=== PATIENT | female | born 1965 | race Caucasian/White ===

== ENCOUNTER → 2016-10-12 | Outpatient (CLI) | payer OTHER ==
[~2016-10-12] MED LIST: FLX10 PO
[2016-10-12 16:28] LABS: BASO % 0.1 %; BASO ABS # 0.01 K/uL (0-0.2); COMPLETE YES; EOS % 0.4 %; HEMATOCRIT 40.9 % (37-47); IG% 0.3 %; LYMPH % 31.7 %; LYMPH ABS # 2.24 K/uL (1.2-3.4); MEAN CELL VOLUME 95.1 fL (80-100); MEAN CORPUSCULAR HEMOGLOBIN 32.8 pg (25-34); MEAN CORPUSCULAR HGB CONC 34.5 g/dl (32-36); MEAN PLATELET VOLUME 10.7 fL (7.4-10.4); MONO % 3.5 %; PLATELET COUNT 173 K/uL (130-400); WHITE BLOOD COUNT 7.07 K/uL (4.8-10.8)
[2016-10-12 16:47] LABS: ALT/SGPT 21 U/L (12-78); AST/SGOT 14 U/L (15-37); BLOOD UREA NITROGEN 19 mg/dl (7-18); BUN/CREATININE RATIO 25.1 (10-20); CALCIUM 9.3 mg/dl (8.5-10.1); CARBON DIOXIDE 32 mmol/L (21-32); CHLORIDE 106 mmol/L (98-107); CREATININE 0.75 mg/dl (0.60-1.20); GLUCOSE 103 mg/dl (70-99); POTASSIUM 3.8 mmol/L (3.5-5.1); SODIUM 142 mmol/L (136-145)
[2016-10-12 16:50] LABS: ALB/GLOB RATIO 1.4 (0.9-2); ALKALINE PHOSPHATASE 65 U/L (45-117)
[2016-10-15 11:11] LABS: HEPATITIS C VIRAL RNA BY PCR <15 NOT DETECTED IU/ML (<15); HEPATITIS C VIRAL RNA(LOG) PCR <1.18 NOT DETECTED LOG IU/ML (<1.18)
== END | disposition home or self-care (01) ==
LOC: C.LAB1850 14:40
PROVIDERS: ATTEND Nurse Practitioner
DX: B19.20 Unspecified viral hepatitis C without hepatic coma (principal); B18.2 Chronic viral hepatitis C

== ENCOUNTER → 2017-01-04 | Outpatient (CLI) | payer OTHER ==
[2017-01-04 12:15] LABS: BASO % 0.2 %; BASO ABS # 0.01 K/uL (0-0.2); COMPLETE YES; EOS % 0.7 %; HEMATOCRIT 44.1 % (37-47); IG% 0.2 %; LYMPH % 36.5 %; MEAN CELL VOLUME 96.5 fL (80-100); MEAN CORPUSCULAR HEMOGLOBIN 31.9 pg (25-34); MEAN CORPUSCULAR HGB CONC 33.1 g/dl (32-36); MEAN PLATELET VOLUME 10.5 fL (7.4-10.4); MONO % 7.1 %; NEUT % 55.3 %; PLATELET COUNT 178 K/uL (130-400); RED BLOOD COUNT 4.57 M/uL (4.2-5.4); WHITE BLOOD COUNT 6.03 K/uL (4.8-10.8)
[2017-01-04 13:25] LABS: ALT/SGPT 22 U/L (12-78); BLOOD UREA NITROGEN 16 mg/dl (7-18); BUN/CREATININE RATIO 20.7 (10-20); CARBON DIOXIDE 30 mmol/L (21-32); CHLORIDE 105 mmol/L (98-107); CREATININE 0.77 mg/dl (0.60-1.20); GLUCOSE 92 mg/dl (70-99); POTASSIUM 4.4 mmol/L (3.5-5.1); SODIUM 141 mmol/L (136-145)
[2017-01-04 13:26] LABS: CALCIUM 9.7 mg/dl (8.5-10.1)
[2017-01-04 13:28] LABS: ALB/GLOB RATIO 1.6 (0.9-2); ALKALINE PHOSPHATASE 64 U/L (45-117); AST/SGOT 19 U/L (15-37)
[2017-01-06 08:00] LABS: HEPATITIS C VIRAL RNA BY PCR <15 NOT DETECTED IU/ML (<15); HEPATITIS C VIRAL RNA(LOG) PCR <1.18 NOT DETECTED LOG IU/ML (<1.18)
== END | disposition home or self-care (01) ==
LOC: C.LAB1850 10:43
PROVIDERS: ATTEND Nurse Practitioner
DX: B18.2 Chronic viral hepatitis C (principal)

== ENCOUNTER 2021-04-25 11:25 | Inpatient (IN) ==
[2021-04-25] MEDS ORDERED: SODIUM CHLORIDE 0.9% 250 ML IV PRN (12:01)
[2021-04-25] MEDS ORDERED: PANTOprazole 40 MG in SYRINGE 0 ML IV ONE (12:18)
[2021-04-25] MEDS ORDERED: FAMOTIDINE 20MG IV PUSH 20 MG/5 ML SYR IV STA (12:18)
--- NOTE | 2021-04-25 12:18 | Emergency Department Note ---
Impression & Plan Acute upper gastrointestinal bleeding, Anemia ED Provider Note NAME: JESSENIA JAIMES AGE: 55 SEX: F : 1965 ARRIVES VIA: Walk-In INFORMANT: Patient, ED PROVIDER(S): Urban Hui DO CHIEF COMPLAINT: Abdominal pain HPI: The patient is a 55-year-old female who presented to the emergency department for an evaluation of abdominal pain. The patient states she is had upper abdominal pain for many weeks. She was seen initially at [facility]. She was initially felt to be suffering from COVID-19. Symptoms continue to worsen. When she went back to [place] she was admitted for anemia and GI bleeding. She then was sent to [facility]. She had an entire work-up including bleeding scans CAT scans and endoscopy. At that time she also did have a rash on her lower extremities. Given her whole work-up they thought her condition could be consistent with a vasculitis specifically of her skin but also of her stomach. She was started on steroids. She states that she was following up with her primary care physician because she needed laboratory studies done before she restarted chemotherapy for recurrent breast cancer. She had outpatient labs which showed a very significantly low hemoglobin and she was sent to the emergency department for further evaluation. The patient has been experiencing shortness of breath with exertion. She denies having any chest pain she has noticed some leg swelling but no rash. She denies having any black or bloody bowel movements. ROS: See above HPI for pertinent positives & negatives. A total of 10 systems reviewed and were otherwise negative. PAST MEDICAL HISTORY: See Below PAST SURGICAL HISTORY: See Below FAMILY HISTORY: See Below SOCIAL HISTORY: See Below HOME MEDICATIONS: See Below ALLERGIES: See Below VITALS: See Below PHYSICAL EXAMINATION: GENERAL: Patient is awake alert in no acute distress patient is resting comfortably and showing no signs of anxiety EYES: The conjunctivae are clear. The pupils are round and reactive. EARS, NOSE, MOUTH AND THROAT: The nose is without any evidence of any deformity. Mucous membranes are moist. Tongue is midline. NECK: The neck is nontender and supple. RESPIRATORY: Normal respiratory effort is noted there is no evidence of wheezing rhonchi or rales CARDIOVASCULAR: Regular rate and rhythm noted there no murmurs rubs or gallops normal S1 normal S2. GASTROINTESTINAL: The abdomen is soft and nondistended. There is no tenderness guarding rigidity. Rectal exam revealed brown stool which was heme positive. MUSCULOSKELETAL/EXTREMITIES: There is no evidence of gross deformity full range of motion is noted in the hips and shoulders. SKIN: Skin was warm and dry. Pedal edema was noted bilaterally. NEUROLOGIC: Patient is awake alert and oriented x3. MEDICAL DECISION MAKING: The patient is a 55-year-old female who presented to the emergency department for an evaluation of anemia. The patient was recently admitted to [facility]. She had an entire work-up which included upper endoscopy and radiographic studies. She was felt to be suffering from a vasculitis of the GI tract. The patient was treated with Protonix and Pepcid in the emergency department. She was also ordered a blood transfusion. I did discuss blood transfusion with the patient and consent her myself. The patient was ordered blood transfusion and was reevaluated multiple times. I discussed her [facility] They have agreed to evaluate the patient in the emergency department for further management and disposition. Triage Nursing notes reviewed. Prior medical records reviewed Vital Signs: reviewed and remarkable for elevated blood pressure. Differential diagnosis: Diverticulosis, AVM, coagulopathy, colitis, inflammatory bowel disease, malignancy, Jennifer-Bentley tear, esophagitis, peptic ulcer disease, variceal bleed, gastritis, epistaxis, fissure, hemorrhoids, as well as other pathologies. ER treatment provided: See below Diagnostics interpreted by me: ECG: EKG was obtained in the emergency department. My interpretation is normal sinus rhythm at 77 bpm. There was no ectopy. There was no acute ST segment abnormalities noted. This was compared to a tracing from March 171998. No significant changes were noted. Cardiac Monitoring: An order was placed for continuous cardiac monitoring. The monitor shows a rate of 83 bpm with sinus rhythm. Laboratory studies: As stated above and show below. Imaging studies: See below Consultation(s): 1235: I discussed this case with Lavonne who was food preparation worker [facility]. I have personally spent greater than 45 minutes of critical care time in the direct management of this patient. This includes bedside care, interpretation of diagnostic studies, and testing, discussion with consultants, patient, and fa edward members, and other required patient management activities. This 45 minutes is in excess of all separately billable procedures. Past Med/Surg History Medical History Anxiety NO MEDS CURRENTLY Breast cancer LEFT Dysplasia of cervix (uteri) Hepatitis C Treatment completed Lactose intolerance in adult Peptic ulcer disease A TEEN Rheumatoid arthritis NO MEDS Surgical History H/O tubal ligation H/O wisdom tooth extraction History of tooth extraction S/P breast biopsy, left US GUIDED Family History Family/Other FHx: breast cancer Family history of diabetes mellitus Father Family history of diabetes mellitus Social History Smoking Status: Never smoker Cigarettes Per Day: 1/2 PPD X 30 YEARS; Second Hand Exposure: No; Hx Alcohol Use: No Hx Substance Use: No Preferred Language: Korean Communication Ability: Effective Addiction Psychiatrist Required: No Beliefs That Will Affect Care: None marital status: Current Living Situation: Spouse current occupational status: employed Feels Safe at Home: Yes caffeine: Yes during the past year weight has: remained stable Dental Care, Regularly: Yes Physical Activity Frequency: 5-6 Times per Week Assistive Devices: Contacts and Glasses Allergies Allergies Allergy/AdvReac Type Severity Reaction Status Date / Time nickel Allergy Mild Rash Verified 03/19/21 08:28 Home Meds Home Medications Medication Instructions Recorded Confirmed amlodipine 2.5 mg tablet 2.5 mg PO DAILY 04/25/21 04/25/21 famotidine 20 mg tablet 20 mg PO DAILY 04/25/21 04/25/21 prednisone 20 mg tablet 20 mg PO DAILY 04/25/21 04/25/21 Results & Data (ED) Vital Signs Vital Signs - 24 hr 04/25/21 11:36 04/25/21 13:24 04/25/21 13:26 Temperature 36.6 C Temperature Source Temporal Artery Scan Pulse Rate 85 Pulse Rate [Apical] 83 Respiratory Rate 16 18 Respiratory Effort / Characteristics Non-Labored Spontaneous Respiratory Depth Normal Respiratory Pattern Regular Blood Pressure 168/98 H Blood Pressure [Right Arm] 166/100 H Blood Pressure Mean 121 Blood Pressure Mean [Right Arm] 122 Pulse Oximetry 95 96 96 Oxygen Delivery Method Room Air Room Air Room Air Sepsis Recent Fever Within 48 Hours No Sepsis New/Unexplained Change in Mental Status No Sepsis Action Taken by Nursing No Action Required Home Medications Current Medication List: was personally reviewed by me Laboratory Data Attestation: I reviewed the patient's lab results. Result diagrams: 04/25/21 12:44 04/25/21 12:44 Lab Results 04/25/21 04/25/21 04/25/21 Range/Units 12:44 12:44 12:44 WBC 10.27 (4.8-10.8) K/uL RBC 2.43 L (4.2-5.4) M/uL Hgb 7.7 L (12.0-16.0) g/dL Hct 22.9 L (37-47) % MCV 94.2 (80-100) fL MCH 31.7 (25-34) pg MCHC 33.6 (32-36) g/dL RDW Std Deviation 46.5 H (36.4-46.3) fL RDW Coeff of Anahi 14.0 (11.5-14.5) % Plt Count 233 (130-400) K/uL MPV 9.0 (7.4-10.4) fL Immature Gran % (Auto) 7.0 % Neut % (Auto) 74.5 % Lymph % (Auto) 9.2 % [place] % (Auto) 6.2 % Eos % (Auto) 2.8 % Baso % (Auto) 0.3 % Neut # (Auto) 7.65 H (1.4-6.5) K/uL Lymph # (Auto) 0.94 L (1.2-3.4) K/uL [place] # (Auto) 0.64 H (0.11-0.59) K/uL Eos # (Auto) 0.29 (0-0.5) K/uL Baso # (Auto) 0.03 (0-0.2) K/uL Immature Gran # (Auto) 0.72 H (0.00-0.02) K/uL Absolute Nucleated RBC 0.02 H (0-0) K/uL Nucleated RBC % (auto) 0.1 % RBC Morphology Unremarkable PT 10.1 (9.0-12.0) Seconds INR 1.0 (0.9-1.1) APTT 21.0 (21.0-31.0) Seconds PTT Ratio 0.8 Sodium (136-145) mmol/L Potassium (3.5-5.1) mmol/L Chloride (98-107) mmol/L Carbon Dioxide (21-32) mmol/L Anion Gap (3-11) BUN (7-18) mg/dl Creatinine (0.6-1.2) mg/dl Est Cr Clr Drug Dosing Est GFR ( Amer) ml/min Est GFR (Non-Af Amer) ml/min BUN/Creatinine Ratio (10-20) Glucose (70-99) mg/dl Calcium (8.5-10.1) mg/dl Total Bilirubin (0.2-1) mg/dl AST (15-37) U/L ALT (12-78) U/L Alkaline Phosphatase (45-117) U/L Troponin I (0-0.045) ng/ml Total Protein (6.4-8.2) gm/dl Albumin (3.4-5.0) gm/dl Globulin (2.5-4.0) gm/dl Albumin/Globulin Ratio (0.9-2) Lipase (73-393) U/L COVID-19 Eval Order SARS-CoV-2 (PCR) (Negative) Blood Type A Positive Blood Type Recheck Antibody Screen NEGATIVE Crossmatch See Detail 04/25/21 04/25/21 04/25/21 Range/Units 12:44 13:20 13:20 WBC (4.8-10.8) K/uL RBC (4.2-5.4) M/uL Hgb (12.0-16.0) g/dL Hct (37-47) % MCV (80-100) fL MCH (25-34) pg MCHC (32-36) g/dL RDW Std Deviation (36.4-46.3) fL RDW Coeff of Anahi (11.5-14.5) % Plt Count (130-400) K/uL MPV (7.4-10.4) fL Immature Gran % (Auto) % Neut % (Auto) % Lymph % (Auto) % [place] % (Auto) % Eos % (Auto) % Baso % (Auto) % Neut # (Auto) (1.4-6.5) K/uL Lymph # (Auto) (1.2-3.4) K/uL [place] # (Auto) (0.11-0.59) K/uL Eos # (Auto) (0-0.5) K/uL Baso # (Auto) (0-0.2) K/uL Immature Gran # (Auto) (0.00-0.02) K/uL Absolute Nucleated RBC (0-0) K/uL Nucleated RBC % (auto) % RBC Morphology PT (9.0-12.0) Seconds INR (0.9-1.1) APTT (21.0-31.0) Seconds PTT Ratio Sodium 139 (136-145) mmol/L Potassium 4.3 (3.5-5.1) mmol/L Chloride 112 H (98-107) mmol/L Carbon Dioxide 23 (21-32) mmol/L Anion Gap 4.0 (3-11) BUN 37 H (7-18) mg/dl Creatinine 0.84 (0.6-1.2) mg/dl Est Cr Clr Drug Dosing Not Reportable Est GFR ( Amer) 90.7 ml/min Est GFR (Non-Af Amer) 78.2 ml/min BUN/Creatinine Ratio 43.7 H (10-20) Glucose 103 H (70-99) mg/dl Calcium 8.3 L (8.5-10.1) mg/dl Total Bilirubin 0.3 (0.2-1) mg/dl AST 26 (15-37) U/L ALT 42 (12-78) U/L Alkaline Phosphatase 121 H (45-117) U/L Troponin I < 0.015 (0-0.045) ng/ml Total Protein 5.1 L (6.4-8.2) gm/dl Albumin 2.4 L (3.4-5.0) gm/dl Globulin 2.7 (2.5-4.0) gm/dl Albumin/Globulin Ratio 0.9 (0.9-2) Lipase 346 (73-393) U/L COVID-19 Eval Order Covid19 at [facility] SARS-CoV-2 (PCR) (Negative) Blood Type Blood Type Recheck A Positive Antibody Screen Crossmatch 04/25/21 Range/Units 13:20 WBC (4.8-10.8) K/uL RBC (4.2-5.4) M/uL Hgb (12.0-16.0) g/dL Hct (37-47) % MCV (80-100) fL MCH (25-34) pg MCHC (32-36) g/dL RDW Std Deviation (36.4-46.3) fL RDW Coeff of Anahi (11.5-14.5) % Plt Count (130-400) K/uL MPV (7.4-10.4) fL Immature Gran % (Auto) % Neut % (Auto) % Lymph % (Auto) % [place] % (Auto) % Eos % (Auto) % Baso % (Auto) % Neut # (Auto) (1.4-6.5) K/uL Lymph # (Auto) (1.2-3.4) K/uL [place] # (Auto) (0.11-0.59) K/uL Eos # (Auto) (0-0.5) K/uL Baso # (Auto) (0-0.2) K/uL Immature Gran # (Auto) (0.00-0.02) K/uL Absolute Nucleated RBC (0-0) K/uL Nucleated RBC % (auto) % RBC Morphology PT (9.0-12.0) Seconds INR (0.9-1.1) APTT (21.0-31.0) Seconds PTT Ratio Sodium (136-145) mmol/L Potassium (3.5-5.1) mmol/L Chloride (98-107) mmol/L Carbon Dioxide (21-32) mmol/L Anion Gap (3-11) BUN (7-18) mg/dl Creatinine (0.6-1.2) mg/dl Est Cr Clr Drug Dosing Est GFR ( Amer) ml/min Est GFR (Non-Af Amer) ml/min BUN/Creatinine Ratio (10-20) Glucose (70-99) mg/dl Calcium (8.5-10.1) mg/dl Total Bilirubin (0.2-1) mg/dl AST (15-37) U/L ALT (12-78) U/L Alkaline Phosphatase (45-117) U/L Troponin I (0-0.045) ng/ml Total Protein (6.4-8.2) gm/dl Albumin (3.4-5.0) gm/dl Globulin (2.5-4.0) gm/dl Albumin/Globulin Ratio (0.9-2) Lipase (73-393) U/L COVID-19 Eval Order SARS-CoV-2 (PCR) NEGATIVE (Negative) Blood Type Blood Type Recheck Antibody Screen Crossmatch Administered Medications Discontinued Medications Furosemide (Furosemide 40 Mg/4 Ml Vial) 20 mg IV NOW STA Stop: 04/25/21 14:12 Last Admin: 04/25/21 14:18 Dose: 20 mg Documented by: [id number] Pantoprazole Sodium 40 mg/ (Syringe) 10 mls @ 5 mls/min IV NOW ONE Stop: 04/25/21 12:19 Last Admin: 04/25/21 14:37 Dose: 5 mls/min Documented by: [id number] Famotidine (Pepcid 20mg Iv Push) 20 mg in 5 mls @ 2.5 mls/min IV NOW STA Stop: 04/25/21 12:19 Last Admin: 04/25/21 13:11 Dose: 2.5 mls/min Documented by: [id number] Imaging Data Radiologist's Impression: Chest X-Ray 04/25/21 12:01 XR chest 1V portable CLINICAL HISTORY: Chest Pain COMPARISON STUDY: PET/CT March 05, 2021. FINDINGS: Left subclavian [id number] is in place. Cardiomediastinal silhouette is normal. Is no pneumothorax. There are small bilateral pleural effusions. There are bibasilar airspace opacities. There is pulmonary vascular congestion. IMPRESSION: 1. Bibasilar opacities which may reflect pneumonia or atelectasis. Radiographic follow up is recommended to ensure resolution. 2. Pulmonary vascular congestion. 3. Small bilateral pleural effusions. ACT 112: Negative or not required by law. Electronically signed by: Ralph Zamudio M.D. 04/25/2021 12:59 PM Discharge Plan Visit Data Chief Complaint: GI Bleed Stated Complaint: TROUBLE BREATHING, REFERRED BY DOCTOR ED Provider: Urban Hui Discharge Problem: Acute upper gastrointestinal bleeding, Anemia Patient Disposition: Being Evaluated by Hospitalist Forms Stand Alone Forms: My [facility] PK Clean Prescriptions Prescriptions: No Action prednisone 20 mg tablet 20 mg PO DAILY RF: 0 amlodipine 2.5 mg tablet 2.5 mg PO DAILY RF: 0 famotidine 20 mg tablet 20 mg PO DAILY RF: 0 Referrals Referrals: Steven Garcia DO [Primary Care Provider] -
[2021-04-25 12:55] LABS: Hematocrit (blood only) 22.9 % (37-47); Hemoglobin 7.7 g/dL (12.0-16.0); Mean Corpuscular Hemoglobin 31.7 pg (25-34); Mean Corpuscular Hgb Conc 33.6 g/dL (32-36); Mean Corpuscular Volume 94.2 fL (80-100); Nucleated RBC # (auto) 0.02 K/uL (0-0); Nucleated RBC % (auto) 0.1 %; Platelet Count 233 K/uL (130-400); RDW Standard Deviation 46.5 fL (36.4-46.3); Red Blood Count 2.43 M/uL (4.2-5.4); White Blood Count 10.27 K/uL (4.8-10.8)
--- NOTE | 2021-04-25 13:00 | XRay Report ---
XR chest 1V portable CLINICAL HISTORY: Chest Pain COMPARISON STUDY: PET/CT March 05, 2021. FINDINGS: Left subclavian [id number] is in place. Cardiomediastinal silhouette is normal. Is no pn eumothorax. There are small bilateral pleural effusions. There are bibasilar airspace opacities. Ther e is pulmonary vascular congestion. IMPRESSION: 1. Bibasilar opacities which may reflect pneumonia or atelectasis. Radiographic follow up is recommen ded to ensure resolution. 2. Pulmonary vascular congestion. 3. Small bilateral pleural effusions. ACT 112: Negative or not required by law. Electronically signed by: Ralph Zamudio M.D. 04/25/2021 12:59 PM
[2021-04-25 13:05] LABS: Partial Thromboplastin Ratio 0.8; Prothrombin Time 10.1 Seconds (9.0-12.0)
[2021-04-25 13:13] LABS: Alanine Aminotransferase 42 U/L (12-78); Albumin Level 2.4 gm/dl (3.4-5.0); Aspartate Aminotransferase 26 U/L (15-37); BUN Creatinine Ratio 43.7 (10-20); Blood Urea Nitrogen 37 mg/dl (7-18); Calcium 8.3 mg/dl (8.5-10.1); Carbon Dioxide 23 mmol/L (21-32); Chloride 112 mmol/L (98-107); Est GFR (African American) 90.7 ml/min; Est GFR (Non-African American) 78.2 ml/min; Glucose 103 mg/dl (70-99); Lipase 346 U/L (73-393); Potassium 4.3 mmol/L (3.5-5.1); Sodium 139 mmol/L (136-145)
[2021-04-25 13:16] LABS: Basophils # (auto) 0.03 K/uL (0-0.2); Basophils % (auto) 0.3 %; Eosinophils # (auto) 0.29 K/uL (0-0.5); Eosinophils % (auto) 2.8 %; Immature Granulocytes # (auto) 0.72 K/uL (0.00-0.02); Lymphocytes # (auto) 0.94 K/uL (1.2-3.4); Lymphocytes % (auto) 9.2 %; Monocytes # (auto) 0.64 K/uL (0.11-0.59); Monocytes % (auto) 6.2 %; Neutrophils # (auto) 7.65 K/uL (1.4-6.5); Neutrophils % (auto) 74.5 %; RBC Morphology Unremarkable
[2021-04-25 13:18] LABS: Albumin Globulin Ratio 0.9 (0.9-2); Alkaline Phosphatase 121 U/L (45-117); Bilirubin,Total 0.3 mg/dl (0.2-1); Globulin 2.7 gm/dl (2.5-4.0); Total Protein 5.1 gm/dl (6.4-8.2); Troponin I < 0.015 ng/ml (0-0.045)
--- NOTE | 2021-04-25 13:55 | Gastrointestinal Consultation ---
Date of Consultation April 25, 2021 Assessment & Plan (1) Duodenitis determined by biopsy: Medically complex 55 year old female with history of HCV s/p Harvoni w/ SVR, triple negative L breast Ca s/p neoadjuvant chemo and b/l mastectomy (05/16/2019) now w/ local recurrence s/p excision and awaiting chemo, recent COVID-19 infection, recent admission x 2 to [facility] for anemia, melena, rash. Work up consistent for leukocytoclastic vasculitis admitted at [facility] w/ anemia (appears stable HGB 7.7) chest pressure/tightness Trend HGB Monitor and document output Transfuse per primary team Consider rheumatology evaluation Patient reporting allergy to PPI (suspected this rash was related to vasculitis) but does not wish to try drug category again, can continue Pepcid while admitted No plan for endoscopic evaluation today Thank you for allowing us to participate in the care of this patient. Please call with any acute changes, questions or concerns. Please see addendum below with additional recommendation from my supervising physician. Supervising Physician Co-Signing Physician Notes I performed a history and physical examination of the patient today, including specifically on physical exam - soft abdomen. I have discussed the patient's management with the advanced practitioner. Please refer to the nurse practitioner's note for the documented findings and plan of care. 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 Started on PO Prednisone. Currently no bleeding and H/H stable. No further intervention from GI stand point. Management per renal and rheumatology teams. Recall GI if needed. History of Present Illness Reason for Consultation: duodenitis Requesting Physician: Lavonne Rico PA-C Attending Physician: Lavonne Rico PA-C History of Present Illness 55 year old female with history of HCV s/p Harvoni w/ SVR, triple negative L breast Ca s/p neoadjuvant chemo and b/l mastectomy (05/16/2019) now w/ local recurrence s/p excision and awaiting chemo, recent COVID-19 infection, recent admission x 2 to [facility] for anemia, melena, rash. Work up consistent for leukocytoclastic vasculitis, started on steroids. Pt comes to the ED today with concerns of chest pressure, tightness and anemia. GI was asked to evaluate. Note from a GI standpoint feels stable. No abd pain. No nausea, vomiting. Moving bowels. Stools are brown. Denies black or bloody stools presently. No fever, chills. EGD 2020: Mucosal changes in the duodenum, findings c/w vasculitis involving descending duodenum and proximal jejunum. Biopsied. - Normal stomach. - Gastroesophageal flap valve classified as Hill Grade II (fold present, opens with respiration). - Z-line regular, 38 cm from the incisors. - Normal esophagus. Colonoscopy 2020: The examined portion of the ileum was normal. - One 6 mm polyp in the descending colon, removed with a cold snare. Resected and retrieved. - One 6 mm polyp in the rectum, removed with a cold snare. Resected and retrieved. - Non-bleeding internal hemorrhoids. Allergies Allergy/AdvReac Type Severity Reaction Status Date / Time nickel Allergy Mild Rash Verified 03/19/21 08:28 Home Medications Medication Instructions Recorded Confirmed Type amlodipine 2.5 mg tablet 2.5 mg PO DAILY 04/25/21 04/25/21 History famotidine 20 mg tablet 20 mg PO DAILY 04/25/21 04/25/21 History prednisone 20 mg tablet 20 mg PO DAILY 04/25/21 04/25/21 History Patient History Medical History Anxiety NO MEDS CURRENTLY Breast cancer LEFT Dysplasia of cervix (uteri) Hepatitis C Treatment completed Lactose intolerance in adult Peptic ulcer disease A TEEN Rheumatoid arthritis NO MEDS Surgical History H/O tubal ligation H/O wisdom tooth extraction History of tooth extraction S/P breast biopsy, left US GUIDED Family History Family/Other FHx: breast cancer Family history of diabetes mellitus Father Family history of diabetes mellitus Social History (Updated 04/25/21 @ 16:17 by Ruby Burdick PA-C) Smoking Status: Former smoker Cigarettes Per Day: 1/2 PPD X 30 YEARS; Second Hand Exposure: No; Hx Alcohol Use: No Hx Substance Use: No Preferred Language: Belizean Communication Ability: Effective Trichologist Required: No Beliefs That Will Affect Care: None marital status: Current Living Situation: Spouse current occupational status: employed Feels Safe at Home: Yes caffeine: Yes during the past year weight has: remained stable Dental Care, Regularly: Yes Physical Activity Frequency: 5-6 Times per Week Assistive Devices: Contacts and Glasses Review of Systems Review of Systems: All systems reviewed & are unremarkable except as noted in HPI & below Physical Exam Constitutional: WD/WN, vitals as above Gastrointestinal (Abdomen): normal bowel sounds, soft, nontender, no hepatosplenomegaly Skin: no rashes, warm and dry Results & Data ([facility]) Vital Signs (Past 12 Hours) Vital Signs Temp Pulse Pulse Resp BP BP Pulse Ox 04/25/21 13:26 83 18 166/100 H 96 04/25/21 13:24 96 04/25/21 11:36 36.6 C 85 16 168/98 H 95 Laboratory Results 04/25/21 04/25/21 04/25/21 Range/Units 13:20 13:20 13:20 WBC (4.8-10.8) K/uL RBC (4.2-5.4) M/uL Hgb (12.0-16.0) g/dL Hct (37-47) % MCV (80-100) fL MCH (25-34) pg MCHC (32-36) g/dL RDW Std Deviation (36.4-46.3) fL RDW Coeff of Anahi (11.5-14.5) % Plt Count (130-400) K/uL MPV (7.4-10.4) fL Immature Gran % (Auto) % Neut % (Auto) % Lymph % (Auto) % [place] % (Auto) % Eos % (Auto) % Baso % (Auto) % Neut # (Auto) (1.4-6.5) K/uL Lymph # (Auto) (1.2-3.4) K/uL [place] # (Auto) (0.11-0.59) K/uL Eos # (Auto) (0-0.5) K/uL Baso # (Auto) (0-0.2) K/uL Immature Gran # (Auto) (0.00-0.02) K/uL Absolute Nucleated RBC (0-0) K/uL Nucleated RBC % (auto) % RBC Morphology PT (9.0-12.0) Seconds INR (0.9-1.1) APTT (21.0-31.0) Seconds PTT Ratio Sodium (136-145) mmol/L Potassium (3.5-5.1) mmol/L Chloride (98-107) mmol/L Carbon Dioxide (21-32) mmol/L Anion Gap (3-11) BUN (7-18) mg/dl Creatinine (0.6-1.2) mg/dl Est Cr Clr Drug Dosing Est GFR ( Amer) ml/min Est GFR (Non-Af Amer) ml/min BUN/Creatinine Ratio (10-20) Glucose (70-99) mg/dl Calcium (8.5-10.1) mg/dl Total Bilirubin (0.2-1) mg/dl AST (15-37) U/L ALT (12-78) U/L Alkaline Phosphatase (45-117) U/L Troponin I (0-0.045) ng/ml Total Protein (6.4-8.2) gm/dl Albumin (3.4-5.0) gm/dl Globulin (2.5-4.0) gm/dl Albumin/Globulin Ratio (0.9-2) Lipase (73-393) U/L COVID-19 Eval Order Covid19 at [facility] SARS-CoV-2 (PCR) Pending Blood Type Blood Type Recheck A Positive Antibody Screen Crossmatch 04/25/21 04/25/21 04/25/21 Range/Units 12:44 12:44 12:44 WBC 10.27 (4.8-10.8) K/uL RBC 2.43 L (4.2-5.4) M/uL Hgb 7.7 L (12.0-16.0) g/dL Hct 22.9 L (37-47) % MCV 94.2 (80-100) fL MCH 31.7 (25-34) pg MCHC 33.6 (32-36) g/dL RDW Std Deviation 46.5 H (36.4-46.3) fL RDW Coeff of Anahi 14.0 (11.5-14.5) % Plt Count 233 (130-400) K/uL MPV 9.0 (7.4-10.4) fL Immature Gran % (Auto) 7.0 % Neut % (Auto) 74.5 % Lymph % (Auto) 9.2 % [place] % (Auto) 6.2 % Eos % (Auto) 2.8 % Baso % (Auto) 0.3 % Neut # (Auto) 7.65 H (1.4-6.5) K/uL Lymph # (Auto) 0.94 L (1.2-3.4) K/uL [place] # (Auto) 0.64 H (0.11-0.59) K/uL Eos # (Auto) 0.29 (0-0.5) K/uL Baso # (Auto) 0.03 (0-0.2) K/uL Immature Gran # (Auto) 0.72 H (0.00-0.02) K/uL Absolute Nucleated RBC 0.02 H (0-0) K/uL Nucleated RBC % (auto) 0.1 % RBC Morphology Unremarkable PT 10.1 (9.0-12.0) Seconds INR 1.0 (0.9-1.1) APTT 21.0 (21.0-31.0) Seconds PTT Ratio 0.8 Sodium 139 (136-145) mmol/L Potassium 4.3 (3.5-5.1) mmol/L Chloride 112 H (98-107) mmol/L Carbon Dioxide 23 (21-32) mmol/L Anion Gap 4.0 (3-11) BUN 37 H (7-18) mg/dl Creatinine 0.84 (0.6-1.2) mg/dl Est Cr Clr Drug Dosing Not Reportable Est GFR ( Amer) 90.7 ml/min Est GFR (Non-Af Amer) 78.2 ml/min BUN/Creatinine Ratio 43.7 H (10-20) Glucose 103 H (70-99) mg/dl Calcium 8.3 L (8.5-10.1) mg/dl Total Bilirubin 0.3 (0.2-1) mg/dl AST 26 (15-37) U/L ALT 42 (12-78) U/L Alkaline Phosphatase 121 H (45-117) U/L Troponin I < 0.015 (0-0.045) ng/ml Total Protein 5.1 L (6.4-8.2) gm/dl Albumin 2.4 L (3.4-5.0) gm/dl Globulin 2.7 (2.5-4.0) gm/dl Albumin/Globulin Ratio 0.9 (0.9-2) Lipase 346 (73-393) U/L COVID-19 Eval Order SARS-CoV-2 (PCR) Blood Type Blood Type Recheck Antibody Screen Crossmatch 04/25/21 Range/Units 12:44 WBC (4.8-10.8) K/uL RBC (4.2-5.4) M/uL Hgb (12.0-16.0) g/dL Hct (37-47) % MCV (80-100) fL MCH (25-34) pg MCHC (32-36) g/dL RDW Std Deviation (36.4-46.3) fL RDW Coeff of Anahi (11.5-14.5) % Plt Count (130-400) K/uL MPV (7.4-10.4) fL Immature Gran % (Auto) % Neut % (Auto) % Lymph % (Auto) % [place] % (Auto) % Eos % (Auto) % Baso % (Auto) % Neut # (Auto) (1.4-6.5) K/uL Lymph # (Auto) (1.2-3.4) K/uL [place] # (Auto) (0.11-0.59) K/uL Eos # (Auto) (0-0.5) K/uL Baso # (Auto) (0-0.2) K/uL Immature Gran # (Auto) (0.00-0.02) K/uL Absolute Nucleated RBC (0-0) K/uL Nucleated RBC % (auto) % RBC Morphology PT (9.0-12.0) Seconds INR (0.9-1.1) APTT (21.0-31.0) Seconds PTT Ratio Sodium (136-145) mmol/L Potassium (3.5-5.1) mmol/L Chloride (98-107) mmol/L Carbon Dioxide (21-32) mmol/L Anion Gap (3-11) BUN (7-18) mg/dl Creatinine (0.6-1.2) mg/dl Est Cr Clr Drug Dosing Est GFR ( Amer) ml/min Est GFR (Non-Af Amer) ml/min BUN/Creatinine Ratio (10-20) Glucose (70-99) mg/dl Calcium (8.5-10.1) mg/dl Total Bilirubin (0.2-1) mg/dl AST (15-37) U/L ALT (12-78) U/L Alkaline Phosphatase (45-117) U/L Troponin I (0-0.045) ng/ml Total Protein (6.4-8.2) gm/dl Albumin (3.4-5.0) gm/dl Globulin (2.5-4.0) gm/dl Albumin/Globulin Ratio (0.9-2) Lipase (73-393) U/L COVID-19 Eval Order SARS-CoV-2 (PCR) Blood Type A Positive Blood Type Recheck Antibody Screen NEGATIVE Crossmatch See Detail
[2021-04-25] MEDS ORDERED: FUROSEMIDE 40 MG/4 ML VIAL IV STA (14:11)
--- NOTE | 2021-04-25 14:21 | History & Physical Report ---
Date of Service April 25, 2021 Assessment & Plan (1) Volume overload: Plan: Shortness of breath Patient is 55-year-old female with PMH HCV s/p Harvoni w/ SVR, triple negative recurrent left breast cancer s/p bilateral mastectomy 2019, chemo now with recurrence was to restart chemo today presented to ER for abnormal labs and shortness of breath. History COVID-19 on 03/26/2021. Had congestion and sore throat. Repeat test on 04/26/2021 negative COVID-19 Admission at [facility] 04/16/2021-04/24/2021 for abdominal pain, BLE rash, AMBER and was treated with IVF. Had noted bilateral pleural effusions on CT chest on 04/22/2021 and mild ascites and anasarca on CT abdomen pelvis 04/22/2021 Received 20 mg IV Lasix yesterday prior to discharge For the past 24 hours patient noted increasing edema bilateral legs extending to abdomen, positive orthopnea In ER patient afebrile, P: 85, R: 16, BP 168/98, 95% on room air. No leukocytosis. H/H: 7.7/22, BUN: 37, Cr: 0.8, negative troponin, negative COVID- 19 PCR CXR: Bibasilar opacities which may reflect pneumonia or atelectasis. Pulmonary vascular congestion. Small bilateral pleural effusions. Likely volume overload secondary to recent IVF (unsure the amount) Hold IVF currently Repeat H&H tonight. Hold PRBC transfusion at this time and if repeat H&H still low will transfuse 1 unit PRBC with dose Lasix Give dose 20 mg Lasix IV now Monitor I&O's, daily weight Echo Trend troponin CBC, BMP in a.m. (2) Anemia: (3) Duodenitis determined by biopsy: Plan: Recent EGD: Mucosal changes in the duodenum, findings c/w vasculitis involving descending duodenum and proximal jejunum. Biopsied. Normal stomach. Normal esophagus. Duodenum biopsy: Active duodenitis with hemorrhage and focal changes in blood vessels suggestive of vasculitis/vasculopathy Pepcid 20 mg daily started secondary to patient having recent bullous type rash to abdomen thought possible secondary to omeprazole Today hemoglobin: 7.7. Was 7.9 yesterday, 8.8 on 04/23/2021. Appears to be stable. Brown stool. Denies melena or hematochezia. Denies any abdominal pain. At this time shortness of breath most likely secondary to volume overload and symptomatic anemia Monitor H&H, transfuse as above Patient does not want to have PPI, will dose Pepcid 20 mg IV twice daily GI consult (4) Vasculitis: Plan: At [facility] was seen by dermatology and rheumatology. 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 Yanet Maloney, fellow rheumatology at [facility] who recommended continuing prednisone 20 mg daily. She reports that she is dispute resolution specialist over the weekend if patient has any change in condition Continue prednisone 20 mg daily (5) Recurrent cancer of left breast: Plan: S/p bilateral mastectomy, chemo 2019 Recent recurrence. Was supposed to start chemo today Follows with Dr. Johnson (6) HTN (hypertension): Plan: Patient with noted elevated blood pressures during admission at [facility] recently. She was started on amlodipine 2.5 mg daily. Amlodipine may be causing some lower extremity edema however patient is clearly volume overloaded at this time We will continue amlodipine and closely monitor DVT Prophylaxis -SCDs secondary to anemia Full Code as per discussion with pt Follows with Dr Garcia for routine care Pt was seen and care coordinated with Dr Cowart. See addendum Admission and Anticipated Discharge Date Admission Date: Pt seen and examined by me, care coordinated with Sadie Burdick pls refer to her note above for further detail. Pt is 55 y/o female w/ hx of HCV s/p Harvoni w/ SVR, triple negative recurrent left breast cancer s/p bilateral mastectomy 2018, chemo now with recurrence was to restart chemo today presented to ER for abnormal labs and shortness of breath. Admission at [facility] 04/06/21-04/08/21 for melena, acute blood loss anemia was discharged on omeprazole. Patient then developed blisters on abdomen that was thought possible secondary to omeprazole and was discontinued Admission at [facility] 04/16/2021-04/24/2021 for abdominal pain, BLE rash, AMBER. She was told her hemoglobin was 6 today so she was referred to ER for further evaluation. Of note patient had outpatient labs today and hemoglobin 7.7 this morning. Patient reports started with shortness of breath last night and had orthopnea. She reports yesterday prior to discharge from [facility] she had noted lower extremity edema. She reports she was given Lasix 20 mg IV prior to discharge. Current CXR: Bibasilar opacities which may reflect pneumonia or atelectasis. Pulmonary vascular congestion. Small bilateral pleural effusions. Currently patient is lying in bed, in no acute distress, feeling better however still on nasal cannula. Breathing somewhat improved. Patient is pale, chronically ill-appearing. She has mild crackles noted on physical exam, heart sounds regular. Abdomen soft nontender nondistended. 1+ lower extremity edema noted. She received 20 of IV Lasix in ED and reports that she went to bathroom about 4 times already, currently exact volume of output not clear. 1 unit of packed red blood cells on hold, will give this w/ another dose of IV Lasix. Her hemoglobin however seems stable. Seen by GI, no procedure planned at this time. Continue to closely monitor hemodynamic status and H&H. Leonard Cowart MD History of Present Illness Chief Complaint: Shortness of breath Primary Care Provider: Steven Garcia DO Patient is 55-year-old female with PMH HCV s/p Harvoni w/ SVR, triple negative recurrent left breast cancer s/p bilateral mastectomy 2018, chemo now with recurrence was to restart chemo today presented to ER for abnormal labs and shortness of breath. 03/26/2021 + Covid 19. Had congestion and sore throat. Repeat test on 04/26/2021 negative COVID-19 Admission at [facility] 04/06/21-04/08/21 for melena, acute blood loss anemia was discharged on omeprazole. Patient then developed blisters on abdomen that was thought possible secondary to omeprazole and was discontinued Admission at [facility] 04/16/2021-04/24/2021 for abdominal pain, BLE rash, AMBER. Had EGD: Mucosal changes in the duodenum, findings c/w vasculitis involving descending duodenum and proximal jejunum. Biopsied. Normal stomach. Normal esophagus. Duodenum biopsy: Active duodenitis with hemorrhage and focal changes in blood vessels suggestive of vasculitis/vasculopathy Pepcid 20 mg daily started. 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 Amlodipine was started secondary to hypertension. 04/22/2021 CT chest: Moderate bilateral pleural effusions with atelectasis. Mild cardiomegaly 04/22/2021 CTA abdomen/pelvis: Mild ascites and anasarca She was treated with IVF for AMBER, thought likely prerenal. Creatinine up to 1.8. She was treated with IVF. Was 1.4 on 04/23 and 1.1 on 04/25. Patient was seen at PCPs office today for follow up. She was to see Dr Elizabeth burroughs and start chemo. She reports she was told her hemoglobin was 6 so she was referred to ER for further evaluation. Of note patient had outpatient labs today and hemoglobin 7.7 this morning. Patient reports started with shortness of breath last night and had orthopnea. She reports yesterday prior to discharge from [facility] she had noted lower extremity edema. She reports she was given Lasix 20 mg IV prior to discharge. Worsening leg edema extending to thighs and abdomen. She reports during her hospitalization she had significant abdominal pain however that suddenly resolved 2 days ago has not had abdominal pain since. She reported some chest tightness, denies any currently. Patient denies any fever, chills, cough. She reports brown stool. Denies fever/chills, diaphoresis, N/V/D/C, GONZALEZ, dizziness, syncope, vision changes, neck pain, palpitations, sore throat, choking, otalgia, rhinorrhea, paresthesias, weakness, extremity weakness, rashes, urinary symptoms. In ER patient afebrile, P: 85, R: 16, BP 168/98, 95% on room air. No leukocytosis. H/H: 7.7/22, BUN: 37, Cr: 0.8, negative troponin, negative COVID- 19 PCR CXR: Bibasilar opacities which may reflect pneumonia or atelectasis. Pulmonary vascular congestion. Small bilateral pleural effusions. Allergies Allergy/AdvReac Type Severity Reaction Status Date / Time nickel Allergy Mild Rash Verified 03/19/21 08:28 Home Medications Medication Instructions Recorded Confirmed Type amlodipine 2.5 mg tablet 2.5 mg PO DAILY 04/25/21 04/25/21 History famotidine 20 mg tablet 20 mg PO DAILY 04/25/21 04/25/21 History prednisone 20 mg tablet 20 mg PO DAILY 04/25/21 04/25/21 History Past Med/Surg History Medical History Anxiety NO MEDS CURRENTLY Breast cancer LEFT Dysplasia of cervix (uteri) Hepatitis C Treatment completed Lactose intolerance in adult Peptic ulcer disease A TEEN Rheumatoid arthritis NO MEDS Surgical History H/O tubal ligation H/O wisdom tooth extraction History of tooth extraction S/P breast biopsy, left US GUIDED Family History Family/Other FHx: breast cancer Family history of diabetes mellitus Father Family history of diabetes mellitus Social History (Updated 04/25/21 @ 16:17 by Ruby Burdick PA-C) Smoking Status: Former smoker Cigarettes Per Day: 1/2 PPD X 30 YEARS; Second Hand Exposure: No; Do You Dip or Chew Tobacco: No; Tobacco Cessation Education Requested by Patient: No Hx Alcohol Use: No Hx Substance Use: No Preferred Language: Greenlandic Communication Ability: Effective Baker Helper Required: No Beliefs That Will Affect Care: None marital status: Current Living Situation: Spouse current occupational status: employed Other Information That Helps Us Care for You: No Feels Safe at Home: Yes Safety Concerns: Feels Safe At This Time caffeine: Yes during the past year weight has: remained stable Dental Care, Regularly: Yes Physical Activity Frequency: 5-6 Times per Week Assistive Devices: Contacts Review of Systems Review of Systems: All systems reviewed & are unremarkable except as noted in HPI & below Physical Exam Physical Exam: General: no distress, WDWN Head: normocephalic, atraumatic Eyes: PERRL, EOM's intact, conjunctiva non-injected, anicteric ENT: normal inspection external ears, nose, mucous membranes moist Neck: supple, trachea midline Lungs: no respiratory distress, +rales bilateral bases CV: RRR, no murmur, 2+ pretibial edema extending to thighs and abdomen; left chest wall port without surrounding erythema Abd: normal BS, soft, non-tender Ext: no cyanosis, no calf tenderness Neuro: A&O x 3, no focal deficits noted, normal affect Skin: warm, dry Results & Data Results & Data ([facility]) Vital Signs (Past 12 Hours) Vital Signs Temp Pulse Pulse Resp BP BP Pulse Ox 10/15/21 13:26 83 18 166/100 H 96 04/25/21 13:24 96 04/25/21 11:36 36.6 C 85 16 168/98 H 95 Laboratory Results Short CBC 04/25/21 Range/Units 12:44 WBC 10.27 (4.8-10.8) K/uL Hgb 7.7 L (12.0-16.0) g/dL Hct 22.9 L (37-47) % Plt Count 233 (130-400) K/uL BMP 04/25/21 12:44 Sodium 139 Potassium 4.3 Chloride 112 H Carbon Dioxide 23 BUN 37 H Creatinine 0.84 Glucose 103 H Calcium 8.3 L Cardiac Enzymes 04/25/21 Range/Units 12:44 Troponin I < 0.015 (0-0.045) ng/ml Liver Function 04/25/21 Range/Units 12:44 Total Bilirubin 0.3 (0.2-1) mg/dl AST 26 (15-37) U/L ALT 42 (12-78) U/L Alkaline Phosphatase 121 H (45-117) U/L Albumin 2.4 L (3.4-5.0) gm/dl Diagnostic Findings Chest X-Ray 04/25/21 12:01 XR chest 1V portable CLINICAL HISTORY: Chest Pain COMPARISON STUDY: PET/CT March 05, 2021. FINDINGS: Left subclavian Acinom-s-Jiaj is in place. Cardiomediastinal silhouette is normal. Is no pneumothorax. There are small bilateral pleural effusions. There are bibasilar airspace opacities. There is pulmonary vascular congestion. IMPRESSION: 1. Bibasilar opacities which may reflect pneumonia or atelectasis. Radiographic follow up is recommended to ensure resolution. 2. Pulmonary vascular congestion. 3. Small bilateral pleural effusions. ACT 112: Negative or not required by law. Electronically signed by: Ralph Zamudio M.D. 04/25/2021 12:59 PM Code Status & VTE Plan VTE Prophylaxis Plan VTE Prophylaxis will be ordered: Yes (1) Anemia Anemia type: unspecified type Qualified Code(s): D64.9 - Anemia, unspecified
--- NOTE | 2021-04-25 16:22 | Electrocardiogram Report ---
Test Reason : Blood Pressure : / mmHG Vent. Rate : 077 BPM Atrial Rate : 077 BPM P-R Int : 128 ms QRS Dur : 082 ms QT Int : 392 ms P-R-T Axes : 043 019 028 degrees QTc Int : 443 ms Normal sinus rhythm Poor R wave progression, consider anterior [place] vs. lead placement vs. LVH Abnormal ECG When compared with ECG of 17-MAR-1999 06:03, No significant change was found Confirmed by Urban Stokes ([id number]) on 04/25/2021 4:22:07 PM Referred By: Steven Garcia Confirmed By:Urban Stokes
[2021-04-25] MEDS ORDERED: predniSONE 20 MG TAB PO STA ×2 (16:24→19:14)
[2021-04-25] MEDS ORDERED: amLODIPine BESYLATE 5 MG TAB PO ONE (16:24)
[2021-04-25 17:05] LABS: Hematocrit (blood only) 23.4 % (37-47); Hemoglobin 7.7 g/dL (12.0-16.0)
[2021-04-25] MEDS ORDERED: ACETAMINOPHEN 325 MG TAB PO PRN (19:00)
[2021-04-25] MEDS ORDERED: ONDANSETRON INJ 2 MG/ML 2 ML VIAL IV PRN (19:00)
[2021-04-25] MEDS ORDERED: PATIENT'S HEIGHT AND/OR WEIGHT NEEDED SCH (19:15)
[2021-04-25] MEDS ORDERED: FUROSEMIDE 20 MG in SYRINGE 0 ML IV STA (19:25)
[2021-04-25] MEDS: FAMOTIDINE 20 MG in SYRINGE 3 ML IV SCH (20:39)
[2021-04-26 01:28] LABS: Hematocrit (blood only) 25.7 % (37-47); Hemoglobin 8.5 g/dL (12.0-16.0)
[2021-04-26 06:28] LABS: Hematocrit (blood only) 23.9 % (37-47); Mean Corpuscular Hemoglobin 31.1 pg (25-34); Mean Corpuscular Hgb Conc 33.5 g/dL (32-36); Mean Platelet Volume 8.8 fL (7.4-10.4); Nucleated RBC # (auto) 0.02 K/uL (0-0); Nucleated RBC % (auto) 0.3 %; Platelet Count 203 K/uL (130-400); RDW Coefficient of Variation 15.4 % (11.5-14.5); RDW Standard Deviation 50.6 fL (36.4-46.3); Red Blood Count 2.57 M/uL (4.2-5.4); White Blood Count 7.89 K/uL (4.8-10.8)
[2021-04-26 07:01] LABS: Creatinine Clr Calc Pharmacy 56.9 ml/min; Est GFR (African American) 83.4 ml/min; Magnesium 2.7 mg/dl (1.8-2.4); Phosphorus 3.6 mg/dl (2.5-4.9); Potassium 4.4 mmol/L (3.5-5.1)
--- NOTE | 2021-04-26 07:18 | Hospitalist Progress Note ---
Date of Service April 26, 2021 Assessment & Plan (1) Volume overload: Plan: Shortness of breath 55 yo F PMH HCV s/p Harvoni w/ SVR, triple negative recurrent left breast cancer s/p bilateral mastectomy 2018, chemo now with recurrence was to restart chemo on day of presentation but presented to ER for abnormal labs and shortness of breath. Admission at [facility] 04/16/2021-04/24/2021 for abdominal pain, BLE rash, AMBER and was treated with IVF. Had noted bilateral pleural effusions on CT chest on 04/22/2021 and mild ascites and anasarca on CT abdomen pelvis 04/22/2021 Received 20 mg IV Lasix prior to discharge For the past 24 hours patient noted increasing edema bilateral legs extending to abdomen, positive orthopnea In ER patient afebrile, P: 85, R: 16, BP 168/98, 95% on room air. No leukocytosis. H/H: 7.7/22, BUN: 37, Cr: 0.8, negative troponin, negative COVID- 19 PCR CXR: Bibasilar opacities which may reflect pneumonia or atelectasis. Pulmonary vascular congestion. Small bilateral pleural effusions. Likely volume overload secondary to recent IVF (unsure the amount) Hold IVF currently Received IV Lasix in ED, and also 1 dose of IV Lasix with blood transfusion overnight Hemoglobin improved, weight improved Clinically patient also is much improved feeling better and breathing better She still quite edematous, continue IV Lasix, monitor H&H Monitor I&O's, daily weight Echo ordered Trend troponin - negative (2) Anemia: (3) Duodenitis determined by biopsy: Plan: Recent EGD: Mucosal changes in the duodenum, findings c/w vasculitis involving descending duodenum and proximal jejunum. Biopsied. Normal stomach. Normal esophagus. Duodenum biopsy: Active duodenitis with hemorrhage and focal changes in blood vessels suggestive of vasculitis/vasculopathy Pepcid 20 mg daily started secondary to patient having recent bullous type rash to abdomen thought possible secondary to omeprazole On admission Hgb: 7.7. Was 7.9 day prior to admission. 8.8 on 04/23/2021. Appears to be stable. Brown stool. Denies melena or hematochezia. Denies any abdominal pain. At this time shortness of breath most likely secondary to volume overload and symptomatic anemia Monitor H&H, transfused 1 unit of pRBC Patient does not want to have PPI, will dose Pepcid 20 mg IV twice daily GI consulted - no procedure planned at this time (4) Vasculitis: Plan: At [facility] was seen by dermatology and rheumatology. 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 Yanet Maloney, fellow rheumatology at [facility] who recommended continuing prednisone 20 mg daily. She reports that she is liaison engineer over the weekend if patient has any change in condition Continue prednisone 20 mg daily (5) Recurrent cancer of left breast: Plan: S/p bilateral mastectomy, chemo 2019 Recent recurrence. Was supposed to start chemo on day of admission Follows with Dr. Johnson (6) HTN (hypertension): Plan: Patient with noted elevated BP during admission at [facility] recently. She was started on amlodipine 2.5 mg daily. Amlodipine may be causing some lower extremity edema however patient is clearly volume overloaded at this time We will continue amlodipine and closely monitor DVT Prophylaxis -SCDs secondary to anemia Full Code as per discussion with pt Follows with Dr Garcia for routine care Admission and Anticipated Discharge Date Admission Date: April 25, 2021 Subjective Patient seen in follow-up of volume overload, anemia, duodenitis Currently laying in bed in no acute distress Says she is already feeling much better, and breathing better No fevers, chills, chest pain, abdominal pain, nausea vomiting Her weight is negative 4 kg, received 1 unit of packed red cells overnight Review of Systems Review of Systems: All systems reviewed & are unremarkable except as noted in Subjective Physical Exam Physical Exam: General: no distress, pale F , WDWN Head: normocephalic, atraumatic Eyes: PERRL, EOM's intact, conjunctiva pale ENT: normal inspection external ears, nose, mucous membranes moist Neck: supple, trachea midline Lungs: no respiratory distress, +mild bibasilar crackles (improved), no wheezing CV: RRR, no murmur, 1+ pretibial edema extending to thighs and abdomen; left chest wall port without surrounding erythema Abd: normal BS, soft, non-tender Ext: no cyanosis, no calf tenderness Neuro: A&O x 3, no focal deficits noted, normal affect Skin: pale (but improved from previous exam), warm, dry Results & Data Results & Data ([facility]) Vital Signs (Past 12 Hours) Vital Signs Temp Pulse Pulse Resp BP BP Pulse Ox 04/26/21 04:30 36.6 C 75 20 158/87 H 96 04/26/21 02:46 89 04/26/21 00:55 36.8 C 04/26/21 00:45 36.8 C 78 18 162/91 H 94 04/25/21 23:45 36.6 C 79 20 158/81 H 94 04/25/21 23:25 85 04/25/21 23:15 36.5 C 76 20 157/91 H 94 04/25/21 23:00 36.8 C 77 18 154/89 H 04/25/21 22:59 36.8 C 80 18 155/82 H 04/25/21 22:39 36.8 C 86 18 151/83 H Laboratory Results 04/26/21 04/26/21 04/26/21 Range/Units 06:13 06:13 01:10 WBC 7.89 (4.8-10.8) K/uL RBC 2.57 L (4.2-5.4) M/uL Hgb 8.0 L 8.5 L (12.0-16.0) g/dL Hct 23.9 L 25.7 L (37-47) % MCV 93.0 (80-100) fL MCH 31.1 (25-34) pg MCHC 33.5 (32-36) g/dL RDW Std Deviation 50.6 H (36.4-46.3) fL RDW Coeff of Anahi 15.4 H (11.5-14.5) % Plt Count 203 (130-400) K/uL MPV 8.8 (7.4-10.4) fL Immature Gran % (Auto) % Neut % (Auto) % Lymph % (Auto) % Ramsey % (Auto) % Eos % (Auto) % Baso % (Auto) % Neut # (Auto) (1.4-6.5) K/uL Lymph # (Auto) (1.2-3.4) K/uL Ramsey # (Auto) (0.11-0.59) K/uL Eos # (Auto) (0-0.5) K/uL Baso # (Auto) (0-0.2) K/uL Immature Gran # (Auto) (0.00-0.02) K/uL Absolute Nucleated RBC 0.02 H (0-0) K/uL Nucleated RBC % (auto) 0.3 % RBC Morphology PT (9.0-12.0) Seconds INR (0.9-1.1) APTT (21.0-31.0) Seconds PTT Ratio Sodium 141 (136-145) mmol/L Potassium 4.4 (3.5-5.1) mmol/L Chloride 111 H (98-107) mmol/L Carbon Dioxide 26 (21-32) mmol/L Anion Gap 5.0 (3-11) BUN 31 H (7-18) mg/dl Creatinine 0.90 (0.6-1.2) mg/dl Est Cr Clr Drug Dosing 56.9 Est GFR ( Amer) 83.4 ml/min Est GFR (Non-Af Amer) 72.0 ml/min BUN/Creatinine Ratio 34.0 H (10-20) Glucose 125 H (70-99) mg/dl Calcium 8.0 L (8.5-10.1) mg/dl Phosphorus 3.6 (2.5-4.9) mg/dl Magnesium 2.7 H (1.8-2.4) mg/dl Total Bilirubin (0.2-1) mg/dl AST (15-37) U/L ALT (12-78) U/L Alkaline Phosphatase (45-117) U/L Troponin I (0-0.045) ng/ml Total Protein (6.4-8.2) gm/dl Albumin (3.4-5.0) gm/dl Globulin (2.5-4.0) gm/dl Albumin/Globulin Ratio (0.9-2) Lipase (73-393) U/L COVID-19 Eval Order SARS-CoV-2 (PCR) (Negative) Blood Type Blood Type Recheck Antibody Screen Crossmatch 04/26/21 04/25/21 04/25/21 Range/Units 01:10 19:13 16:53 WBC (4.8-10.8) K/uL RBC (4.2-5.4) M/uL Hgb 7.7 L (12.0-16.0) g/dL Hct 23.4 L (37-47) % MCV (80-100) fL MCH (25-34) pg MCHC (32-36) g/dL RDW Std Deviation (36.4-46.3) fL RDW Coeff of Anahi (11.5-14.5) % Plt Count (130-400) K/uL MPV (7.4-10.4) fL Immature Gran % (Auto) % Neut % (Auto) % Lymph % (Auto) % Ramsey % (Auto) % Eos % (Auto) % Baso % (Auto) % Neut # (Auto) (1.4-6.5) K/uL Lymph # (Auto) (1.2-3.4) K/uL Ramsey # (Auto) (0.11-0.59) K/uL Eos # (Auto) (0-0.5) K/uL Baso # (Auto) (0-0.2) K/uL Immature Gran # (Auto) (0.00-0.02) K/uL Absolute Nucleated RBC (0-0) K/uL Nucleated RBC % (auto) % RBC Morphology PT (9.0-12.0) Seconds INR (0.9-1.1) APTT (21.0-31.0) Seconds PTT Ratio Sodium (136-145) mmol/L Potassium (3.5-5.1) mmol/L Chloride (98-107) mmol/L Carbon Dioxide (21-32) mmol/L Anion Gap (3-11) BUN (7-18) mg/dl Creatinine (0.6-1.2) mg/dl Est Cr Clr Drug Dosing Est GFR ( Amer) ml/min Est GFR (Non-Af Amer) ml/min BUN/Creatinine Ratio (10-20) Glucose (70-99) mg/dl Calcium (8.5-10.1) mg/dl Phosphorus (2.5-4.9) mg/dl Magnesium (1.8-2.4) mg/dl Total Bilirubin (0.2-1) mg/dl AST (15-37) U/L ALT (12-78) U/L Alkaline Phosphatase (45-117) U/L Troponin I < 0.015 < 0.015 (0-0.045) ng/ml Total Protein (6.4-8.2) gm/dl Albumin (3.4-5.0) gm/dl Globulin (2.5-4.0) gm/dl Albumin/Globulin Ratio (0.9-2) Lipase (73-393) U/L COVID-19 Eval Order SARS-CoV-2 (PCR) (Negative) Blood Type Blood Type Recheck Antibody Screen Crossmatch 04/25/21 04/25/21 04/25/21 Range/Units 13:20 13:20 13:20 WBC (4.8-10.8) K/uL RBC (4.2-5.4) M/uL Hgb (12.0-16.0) g/dL Hct (37-47) % MCV (80-100) fL MCH (25-34) pg MCHC (32-36) g/dL RDW Std Deviation (36.4-46.3) fL RDW Coeff of Anahi (11.5-14.5) % Plt Count (130-400) K/uL MPV (7.4-10.4) fL Immature Gran % (Auto) % Neut % (Auto) % Lymph % (Auto) % Ramsey % (Auto) % Eos % (Auto) % Baso % (Auto) % Neut # (Auto) (1.4-6.5) K/uL Lymph # (Auto) (1.2-3.4) K/uL Ramsey # (Auto) (0.11-0.59) K/uL Eos # (Auto) (0-0.5) K/uL Baso # (Auto) (0-0.2) K/uL Immature Gran # (Auto) (0.00-0.02) K/uL Absolute Nucleated RBC (0-0) K/uL Nucleated RBC % (auto) % RBC Morphology PT (9.0-12.0) Seconds INR (0.9-1.1) APTT (21.0-31.0) Seconds PTT Ratio Sodium (136-145) mmol/L Potassium (3.5-5.1) mmol/L Chloride (98-107) mmol/L Carbon Dioxide (21-32) mmol/L Anion Gap (3-11) BUN (7-18) mg/dl Creatinine (0.6-1.2) mg/dl Est Cr Clr Drug Dosing Est GFR ( Amer) ml/min Est GFR (Non-Af Amer) ml/min BUN/Creatinine Ratio (10-20) Glucose (70-99) mg/dl Calcium (8.5-10.1) mg/dl Phosphorus (2.5-4.9) mg/dl Magnesium (1.8-2.4) mg/dl Total Bilirubin (0.2-1) mg/dl AST (15-37) U/L ALT (12-78) U/L Alkaline Phosphatase (45-117) U/L Troponin I (0-0.045) ng/ml Total Protein (6.4-8.2) gm/dl Albumin (3.4-5.0) gm/dl Globulin (2.5-4.0) gm/dl Albumin/Globulin Ratio (0.9-2) Lipase (73-393) U/L COVID-19 Eval Order Covid19 at [facility] SARS-CoV-2 (PCR) NEGATIVE (Negative) Blood Type Blood Type Recheck A Positive Antibody Screen Crossmatch 04/25/21 04/25/21 04/25/21 Range/Units 12:44 12:44 12:44 WBC 10.27 (4.8-10.8) K/uL RBC 2.43 L (4.2-5.4) M/uL Hgb 7.7 L (12.0-16.0) g/dL Hct 22.9 L (37-47) % MCV 94.2 (80-100) fL MCH 31.7 (25-34) pg MCHC 33.6 (32-36) g/dL RDW Std Deviation 46.5 H (36.4-46.3) fL RDW Coeff of Anahi 14.0 (11.5-14.5) % Plt Count 233 (130-400) K/uL MPV 9.0 (7.4-10.4) fL Immature Gran % (Auto) 7.0 % Neut % (Auto) 74.5 % Lymph % (Auto) 9.2 % Ramsey % (Auto) 6.2 % Eos % (Auto) 2.8 % Baso % (Auto) 0.3 % Neut # (Auto) 7.65 H (1.4-6.5) K/uL Lymph # (Auto) 0.94 L (1.2-3.4) K/uL Ramsey # (Auto) 0.64 H (0.11-0.59) K/uL Eos # (Auto) 0.29 (0-0.5) K/uL Baso # (Auto) 0.03 (0-0.2) K/uL Immature Gran # (Auto) 0.72 H (0.00-0.02) K/uL Absolute Nucleated RBC 0.02 H (0-0) K/uL Nucleated RBC % (auto) 0.1 % RBC Morphology Unremarkable PT 10.1 (9.0-12.0) Seconds INR 1.0 (0.9-1.1) APTT 21.0 (21.0-31.0) Seconds PTT Ratio 0.8 Sodium 139 (136-145) mmol/L Potassium 4.3 (3.5-5.1) mmol/L Chloride 112 H (98-107) mmol/L Carbon Dioxide 23 (21-32) mmol/L Anion Gap 4.0 (3-11) BUN 37 H (7-18) mg/dl Creatinine 0.84 (0.6-1.2) mg/dl Est Cr Clr Drug Dosing Not Reportable Est GFR ( Amer) 90.7 ml/min Est GFR (Non-Af Amer) 78.2 ml/min BUN/Creatinine Ratio 43.7 H (10-20) Glucose 103 H (70-99) mg/dl Calcium 8.3 L (8.5-10.1) mg/dl Phosphorus (2.5-4.9) mg/dl Magnesium (1.8-2.4) mg/dl Total Bilirubin 0.3 (0.2-1) mg/dl AST 26 (15-37) U/L ALT 42 (12-78) U/L Alkaline Phosphatase 121 H (45-117) U/L Troponin I < 0.015 (0-0.045) ng/ml Total Protein 5.1 L (6.4-8.2) gm/dl Albumin 2.4 L (3.4-5.0) gm/dl Globulin 2.7 (2.5-4.0) gm/dl Albumin/Globulin Ratio 0.9 (0.9-2) Lipase 346 (73-393) U/L COVID-19 Eval Order SARS-CoV-2 (PCR) (Negative) Blood Type Blood Type Recheck Antibody Screen Crossmatch 04/25/21 Range/Units 12:44 WBC (4.8-10.8) K/uL RBC (4.2-5.4) M/uL Hgb (12.0-16.0) g/dL Hct (37-47) % MCV (80-100) fL MCH (25-34) pg MCHC (32-36) g/dL RDW Std Deviation (36.4-46.3) fL RDW Coeff of Anahi (11.5-14.5) % Plt Count (130-400) K/uL MPV (7.4-10.4) fL Immature Gran % (Auto) % Neut % (Auto) % Lymph % (Auto) % Ramsey % (Auto) % Eos % (Auto) % Baso % (Auto) % Neut # (Auto) (1.4-6.5) K/uL Lymph # (Auto) (1.2-3.4) K/uL Ramsey # (Auto) (0.11-0.59) K/uL Eos # (Auto) (0-0.5) K/uL Baso # (Auto) (0-0.2) K/uL Immature Gran # (Auto) (0.00-0.02) K/uL Absolute Nucleated RBC (0-0) K/uL Nucleated RBC % (auto) % RBC Morphology PT (9.0-12.0) Seconds INR (0.9-1.1) APTT (21.0-31.0) Seconds PTT Ratio Sodium (136-145) mmol/L Potassium (3.5-5.1) mmol/L Chloride (98-107) mmol/L Carbon Dioxide (21-32) mmol/L Anion Gap (3-11) BUN (7-18) mg/dl Creatinine (0.6-1.2) mg/dl Est Cr Clr Drug Dosing Est GFR ( Amer) ml/min Est GFR (Non-Af Amer) ml/min BUN/Creatinine Ratio (10-20) Glucose (70-99) mg/dl Calcium (8.5-10.1) mg/dl Phosphorus (2.5-4.9) mg/dl Magnesium (1.8-2.4) mg/dl Total Bilirubin (0.2-1) mg/dl AST (15-37) U/L ALT (12-78) U/L Alkaline Phosphatase (45-117) U/L Troponin I (0-0.045) ng/ml Total Protein (6.4-8.2) gm/dl Albumin (3.4-5.0) gm/dl Globulin (2.5-4.0) gm/dl Albumin/Globulin Ratio (0.9-2) Lipase (73-393) U/L COVID-19 Eval Order SARS-CoV-2 (PCR) (Negative) Blood Type A Positive Blood Type Recheck Antibody Screen NEGATIVE Crossmatch See Detail Medications Administered Current Inpatient Medications Acetaminophen (Acetaminophen 325 Mg Tab) 650 mg PO Q4H PRN PRN Reason: Pain or Fever Stop: 05/25/21 18:59 Amlodipine Besylate (Amlodipine Besylate 5 Mg Tab) 2.5 mg PO DAILY [facility] Stop: 05/26/21 08:59 Famotidine 20 mg/ Syringe 5 mls @ 2.5 mls/min IV BID [facility] Stop: 05/25/21 20:59 Last Admin: 04/25/21 20:39 Dose: 2.5 mls/min Documented by: Furosemide 20 mg/ Syringe 2 mls @ 4 mls/min IV ONE ONE Stop: 04/26/21 07:16 Ondansetron HCl (Ondansetron Inj 2 Mg/Ml 2 Ml Vial) 4 mg IV Q6H PRN PRN Reason: Nausea Stop: 05/25/21 18:59 Prednisone (Prednisone 20 Mg Tab) 20 mg PO DAILY [facility] Stop: 05/26/21 08:59 (1) Anemia Anemia type: unspecified type Qualified Code(s): D64.9 - Anemia, unspecified
[2021-04-26] MEDS ORDERED: FUROSEMIDE 20 MG in SYRINGE 0 ML IV ONE (07:30)
[2021-04-26] MEDS: FAMOTIDINE 20 MG in SYRINGE 3 ML IV SCH ×2 (08:06→20:14)
[2021-04-26] MEDS: predniSONE 20 MG TAB PO SCH (08:06)
[2021-04-26] MEDS: amLODIPine BESYLATE 5 MG TAB PO SCH (08:06)
--- NOTE | 2021-04-26 09:17 | XRay Report ---
XR chest 1V portable CLINICAL HISTORY: follow up COMPARISON STUDY: Chest radiograph April 25, 2021. FINDINGS: Left subclavian [id number] is in place. There is no pneumothorax. Small bilateral pleura l effusions are noted. Bibasilar opacities have improved. Interstitial thickening has slightly improv ed. Cardiomediastinal silhouette is stable. IMPRESSION: 1. Interval improvement in bibasilar opacities and interstitial thickening. 2. Small bilateral pleural effusions. ACT 112: Negative or not required by law. Electronically signed by: Ralph Zamudio M.D. 04/26/2021 9:15 AM
[2021-04-26 15:40] LABS: Hematocrit (blood only) 25.5 % (37-47); Hemoglobin 8.5 g/dL (12.0-16.0)
[2021-04-26 15:57] LABS: BUN Creatinine Ratio 27.5 (10-20); Calcium 8.1 mg/dl (8.5-10.1); Creatinine Clr Calc Pharmacy 60.2 ml/min; Est GFR (African American) 78.2 ml/min; Est GFR (Non-African American) 67.4 ml/min; Magnesium 2.6 mg/dl (1.8-2.4); Potassium 4.9 mmol/L (3.5-5.1)
[2021-04-27 07:12] LABS: Hematocrit (blood only) 25.7 % (37-47); Hemoglobin 8.4 g/dL (12.0-16.0)
[2021-04-27 07:43] LABS: BUN Creatinine Ratio 34.3 (10-20); Calcium 7.8 mg/dl (8.5-10.1); Creatinine Clr Calc Pharmacy 80.4 ml/min; Est GFR (African American) 111.1 ml/min; Est GFR (Non-African American) 95.9 ml/min; Magnesium 2.5 mg/dl (1.8-2.4); Phosphorus 2.7 mg/dl (2.5-4.9); Potassium 4.1 mmol/L (3.5-5.1)
[2021-04-27] MEDS: predniSONE 20 MG TAB PO SCH (07:48)
[2021-04-27] MEDS: amLODIPine BESYLATE 5 MG TAB PO SCH (07:49)
[2021-04-27] MEDS: FAMOTIDINE 20 MG in SYRINGE 3 ML IV SCH ×2 (07:49→20:32)
--- NOTE | 2021-04-27 07:52 | Hospitalist Progress Note ---
Date of Service April 27, 2021 Assessment & Plan (1) Volume overload: Plan: Shortness of breath 55 yo F PMH HCV s/p Harvoni w/ SVR, triple negative recurrent left breast cancer s/p bilateral mastectomy 2018, chemo now with recurrence was to restart chemo on day of presentation but presented to ER for abnormal labs and shortness of breath. [place] [facility] [place]04/24/2021 for abdominal pain, BLE rash, AMBER and was treated with IVF. Had noted bilateral pleural effusions on CT chest on 04/22/2021 and mild ascites and anasarca on CT abdomen pelvis 04/22/2021 Received 20 mg IV Lasix prior to discharge For the past 24 hours patient noted increasing edema bilateral legs extending to abdomen, positive orthopnea In ER patient afebrile, P: 85, R: 16, BP 168/98, 95% on room air. No leukocytosis. H/H: 7.7/22, BUN: 37, Cr: 0.8, negative troponin, negative COVID- 19 PCR CXR: Bibasilar opacities which may reflect pneumonia or atelectasis. Pulmonary vascular congestion. Small bilateral pleural effusions. Likely volume overload secondary to recent IVF (unsure the amount) Hold IVF currently Received IV Lasix in ED, and also 1 dose of IV Lasix with blood transfusion overnight Diuresing well Hemoglobin improved, weight improved Clinically patient also is much improved, feeling better and breathing better, edema improved continue IV Lasix, monitor H&H Monitor I&O's, daily weight Echo ordered Trend troponin - negative (2) Anemia: (3) Duodenitis determined by biopsy: Plan: Recent EGD: Mucosal changes in the duodenum, findings c/w vasculitis involving descending duodenum and proximal jejunum. Biopsied. Normal stomach. Normal esophagus. Duodenum biopsy: Active duodenitis with hemorrhage and focal changes in blood vessels suggestive of vasculitis/vasculopathy Pepcid 20 mg daily started secondary to patient having recent bullous type rash to abdomen thought possible secondary to omeprazole On admission Hgb: 7.7. Was 7.9 day prior to admission. 8.8 on 04/23/2021. Appears to be stable. Brown stool. Denies melena or hematochezia. Denies any abdominal pain. At this time shortness of breath most likely secondary to volume overload and symptomatic anemia Monitor H&H, transfused 1 unit of pRBC Patient does not want to have PPI, will dose Pepcid 20 mg IV twice daily GI consulted - no procedure planned at this time (4) Vasculitis: Plan: At [facility] [place] seen by dermatology and rheumatology. 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 Yanet Maloney, fellow rheumatology at [facility] who recommended continuing prednisone 20 mg daily. She reports that she is division toll wire chief over the weekend if patient has any change in condition Continue prednisone 20 mg daily (5) Recurrent cancer of left breast: Plan: S/p bilateral mastectomy, chemo 2019 Recent recurrence. Was supposed to start chemo on day of admission Follows with Dr. Johnson (6) HTN (hypertension): Plan: Patient with noted elevated BP during admission at [facility] recently. She was started on amlodipine 2.5 mg daily. Amlodipine may be causing some lower extremity edema however patient is clearly volume overloaded at this time We will continue amlodipine and closely monitor DVT Prophylaxis -SCDs secondary to anemia Full Code as per discussion with pt Follows with Dr Garcia for routine care Admission and Anticipated Discharge Date Admission Date: April 25, 2021 Subjective Patient seen in follow-up of volume overload, anemia, duodenitis Currently laying in bed in no acute distress Says she is already feeling much better, and breathing better No fevers, chills, chest pain, abdominal pain, nausea vomiting She is diuresing well, edema much improved, received 1 unit of packed red cells on admission Review of Systems Review of Systems: All systems reviewed & are unremarkable except as noted in Subjective Physical Exam Physical Exam: General: no distress, pale F , WDWN Head: normocephalic, atraumatic Eyes: PERRL, EOM's intact, conjunctiva pale ENT: normal inspection external ears, nose, mucous membranes moist Neck: supple, trachea midline Lungs: no respiratory distress, +mild bibasilar crackles (improved), no wheezing CV: RRR, no murmur, pretibial edema extending to thighs and abdomen (improved); left chest wall port without surrounding erythema Abd: normal BS, soft, non-tender Ext: no cyanosis, no calf tenderness Neuro: A&O x 3, no focal deficits noted, normal affect Skin: pale (but improved from previous exam), warm, dry Results & Data Results & Data ([place]) Vital Signs (Past 12 Hours) Vital Signs Temp Pulse Pulse Resp BP Pulse Ox 04/27/21 07:43 36.7 C 76 22 176/97 H 96 04/27/21 04:00 36.6 C 72 20 157/88 H 95 04/27/21 01:56 68 04/26/21 23:05 36.7 C 69 20 162/75 H 94 Laboratory Results 04/27/21 04/27/21 04/26/21 Range/Units 06:45 06:45 15:32 Hgb 8.4 L (12.0-16.0) g/dL Hct 25.7 L (37-47) % Sodium 141 140 (136-145) mmol/L Potassium 4.1 D 4.9 (3.5-5.1) mmol/L Chloride 110 H 110 H (98-107) mmol/L Carbon Dioxide 28 29 (21-32) mmol/L Anion Gap 4.0 1.0 L (3-11) BUN 25 H 26 H (7-18) mg/dl Creatinine 0.71 0.95 (0.6-1.2) mg/dl Est Cr Clr Drug Dosing 80.4 60.2 ml/min Est GFR ( Amer) 111.1 78.2 ml/min Est GFR (Non-Af Amer) 95.9 67.4 ml/min BUN/Creatinine Ratio 34.3 H 27.5 H (10-20) Glucose 86 140 H (70-99) mg/dl Calcium 7.8 L 8.1 L (8.5-10.1) mg/dl Phosphorus 2.7 (2.5-4.9) mg/dl Magnesium 2.5 H 2.6 H (1.8-2.4) mg/dl 04/26/21 Range/Units 15:32 Hgb 8.5 L (12.0-16.0) g/dL Hct 25.5 L (37-47) % Sodium (136-145) mmol/L Potassium (3.5-5.1) mmol/L Chloride (98-107) mmol/L Carbon Dioxide (21-32) mmol/L Anion Gap (3-11) BUN (7-18) mg/dl Creatinine (0.6-1.2) mg/dl Est Cr Clr Drug Dosing ml/min Est GFR ( Amer) ml/min Est GFR (Non-Af Amer) ml/min BUN/Creatinine Ratio (10-20) Glucose (70-99) mg/dl Calcium (8.5-10.1) mg/dl Phosphorus (2.5-4.9) mg/dl Magnesium (1.8-2.4) mg/dl Medications Administered Current Inpatient Medications Acetaminophen (Acetaminophen 325 Mg Tab) 650 mg PO Q4H PRN PRN Reason: Pain or Fever Stop: 05/25/21 18:59 Last Admin: 04/27/21 07:48 Dose: 650 mg Documented by: Amlodipine Besylate (Amlodipine Besylate 5 Mg Tab) 2.5 mg PO DAILY [facility] Stop: 05/26/21 08:59 Last Admin: 04/27/21 07:49 Dose: 2.5 mg Documented by: Famotidine 20 mg/ Syringe 5 mls @ 2.5 mls/min IV BID [facility] Stop: 05/25/21 20:59 Last Admin: 04/27/21 07:49 Dose: 2.5 mls/min Documented by: Furosemide 20 mg/ Syringe 2 mls @ 4 mls/min IV 0800 ONE Stop: 04/27/21 08:01 Ondansetron HCl (Ondansetron Inj 2 Mg/Ml 2 Ml Vial) 4 mg IV Q6H PRN PRN Reason: Nausea Stop: 05/25/21 18:59 Prednisone (Prednisone 20 Mg Tab) 20 mg PO DAILY [facility] Stop: 05/26/21 08:59 Last Admin: 04/27/21 07:48 Dose: 20 mg Documented by: (1) Anemia Anemia type: unspecified type Qualified Code(s): D64.9 - Anemia, unspecified
[2021-04-27] MEDS ORDERED: FUROSEMIDE 20 MG in SYRINGE 0 ML IV ONE (08:00)
--- NOTE | 2021-04-27 09:35 | Electrocardiogram Report ---
Test Reason : Blood Pressure : / mmHG Vent. Rate : 066 BPM Atrial Rate : 066 BPM P-R Int : 138 ms QRS Dur : 092 ms QT Int : 432 ms P-R-T Axes : 038 013 023 degrees QTc Int : 452 ms Normal sinus rhythm Normal ECG When compared with ECG of 25-APR-2021 13:12, No significant change was found Confirmed by Porfirio Freeman ([id number] on 04/27/2021 9:34:37 AM Referred By: Steven Garcia Confirmed By:Porfirio Freeman
[2021-04-27] MEDS ORDERED: HEPARIN 100 UNIT/ML 5ML FLUSH FLUSH PRN (22:48)
[2021-04-28 06:41] LABS: BUN Creatinine Ratio 31.2 (10-20); Calcium 8.4 mg/dl (8.5-10.1); Creatinine Clr Calc Pharmacy 69.6 ml/min; Est GFR (African American) 93.4 ml/min; Est GFR (Non-African American) 80.6 ml/min; Potassium 4.2 mmol/L (3.5-5.1)
--- NOTE | 2021-04-28 08:16 | Hospitalist Progress Note ---
Date of Service April 28, 2021 Assessment & Plan (1) Volume overload: Plan: Shortness of breath 55 yo F PMH HCV s/p Harvoni w/ SVR, triple negative recurrent left breast cancer s/p bilateral mastectomy 2018, chemo now with recurrence was to restart chemo on day of presentation but presented to ER for abnormal labs and shortness of breath. Admission at [facility] 04/16/2021-04/24/2021 for abdominal pain, BLE rash, AMBER and was treated with IVF. Had noted bilateral pleural effusions on CT chest on 04/22/2021 and mild ascites and anasarca on CT abdomen pelvis 04/22/2021 Received 20 mg IV Lasix prior to discharge For the past 24 hours patient noted increasing edema bilateral legs extending to abdomen, positive orthopnea In ER patient afebrile, P: 85, R: 16, BP 168/98, 95% on room air. No leukocytosis. H/H: 7.7/22, BUN: 37, Cr: 0.8, negative troponin, negative COVID- 19 PCR CXR: Bibasilar opacities which may reflect pneumonia or atelectasis. Pulmonary vascular congestion. Small bilateral pleural effusions. Likely volume overload secondary to recent IVF (unsure the amount) Hold IVF currently Received IV Lasix in ED, and also 1 dose of IV Lasix with blood transfusion overnight IV Lasix while inpt, can stop now, monitor H&H Diuresing well Hemoglobin improved, weight improved Clinically patient also is much improved, feeling better and breathing better, edema resolved Monitor I&O's, daily weight Echo ordered -LV normal in size. Borderline concentric LVH. LV systolic function is normal. LVEF 55%. LV wall motion is normal. RV is normal in size and function. Aortic valve sclerosis mild, without significant aortic valvular stenosis. There is mild mitral regurg. RV systolic pressure elevated 30 to 40 mmHg. Normal-sized IVC with abnormal collapse. Normal diastolic function. Trend troponin - negative (2) Anemia: (3) Duodenitis determined by biopsy: Plan: Recent EGD: Mucosal changes in the duodenum, findings c/w vasculitis involving descending duodenum and proximal jejunum. Biopsied. Normal stomach. Normal esophagus. Duodenum biopsy: Active duodenitis with hemorrhage and focal changes in blood vessels suggestive of vasculitis/vasculopathy Pepcid 20 mg daily started secondary to patient having recent bullous type rash to abdomen thought possible secondary to omeprazole On admission Hgb: 7.7. Was 7.9 day prior to admission. 8.8 on 04/23/2021. Appears to be stable. Brown stool. Denies melena or hematochezia. Denies any abdominal pain. At this time shortness of breath most likely secondary to volume overload and s ymptomatic anemia Monitor H&H, transfused 1 unit of pRBC Patient does not want to have PPI, will dose Pepcid 20 mg IV twice daily GI consulted - no procedure planned at this time (4) Vasculitis: Plan: At [facility] was seen by dermatology and rheumatology. 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 Yanet Maloney, fellow rheumatology at [facility] who recommended continuing prednisone 20 mg daily. She reports that she is transactional attorney over the weekend if patient has any change in condition Continue prednisone 20 mg daily (5) Recurrent cancer of left breast: Plan: S/p bilateral mastectomy, chemo 2019 Recent recurrence. Was supposed to start chemo on day of admission Follows with Dr. Johnson (6) HTN (hypertension): Plan: Patient with noted elevated BP during admission at [facility] recently. She was started on amlodipine 2.5 mg daily. Amlodipine may be causing some lower extremity edema however patient is clearly volume overloaded at this time Continued amlodipine while inpt - switch to lisinopril on discharge Follow-up BP as outpatient DVT Prophylaxis -SCDs secondary to anemia Full Code as per discussion with pt Follows with Dr Garcia for routine care Admission and Anticipated Discharge Date Admission Date: April 25, 2021 Subjective Patient seen in follow-up of volume overload, anemia, duodenitis Currently laying in bed in no acute distress Says she is already feeling much better, and breathing better No fevers, chills, chest pain, abdominal pain, nausea vomiting She is diuresing well, edema resolved, received 1 unit of packed red cells on admission Review of Systems Review of Systems: All systems reviewed & are unremarkable except as noted in Subjective Physical Exam Physical Exam: General: no distress, pale F , WDWN Head: normocephalic, atraumatic Eyes: PERRL, EOM's intact, conjunctiva pale ENT: normal inspection external ears, nose, mucous membranes moist Neck: supple, trachea midline Lungs: no respiratory distress, CTAB, no wheezing, rhonchi, crackles CV: RRR, no murmur, no LE edema (resolved); left chest wall port without surrounding erythema Abd: normal BS, soft, non-tender Ext: no cyanosis, no calf tenderness Neuro: A&O x 3, no focal deficits noted, normal affect Skin: warm, dry Results & Data Results & Data ([facility]) Vital Signs (Past 12 Hours) Vital Signs Temp Pulse Pulse Resp BP Pulse Ox 04/28/21 07:46 36.6 C 66 16 177/93 H 97 04/28/21 07:19 69 04/28/21 04:00 37.3 C 71 20 153/95 H 97 04/28/21 02:23 71 04/27/21 22:59 36.8 C 70 20 157/85 H 96 Laboratory Results 04/28/21 Range/Units 05:40 Sodium 141 (136-145) mmol/L Potassium 4.2 (3.5-5.1) mmol/L Chloride 109 H (98-107) mmol/L Carbon Dioxide 27 (21-32) mmol/L Anion Gap 6.0 (3-11) BUN 26 H (7-18) mg/dl Creatinine 0.82 (0.6-1.2) mg/dl Est Cr Clr Drug Dosing 69.6 ml/min Est GFR ( Amer) 93.4 ml/min Est GFR (Non-Af Amer) 80.6 ml/min BUN/Creatinine Ratio 31.2 H (10-20) Glucose 91 (70-99) mg/dl Calcium 8.4 L (8.5-10.1) mg/dl Medications Administered Current Inpatient Medications Acetaminophen (Acetaminophen 325 Mg Tab) 650 mg PO Q4H PRN PRN Reason: Pain or Fever Stop: 05/25/21 18:59 Last Admin: 04/27/21 07:48 Dose: 650 mg Documented by: Amlodipine Besylate (Amlodipine Besylate 5 Mg Tab) 2.5 mg PO DAILY SALMA Stop: 05/26/21 08:59 Last Admin: 04/27/21 07:49 Dose: 2.5 mg Documented by: Heparin Sodium (Porcine) (Heparin 100 Unit/Ml 5ml Flush) 5 ml FLUSH PRN PRN PRN Reason: Flush Stop: 05/27/21 22:47 Famotidine 20 mg/ Syringe 5 mls @ 2.5 mls/min IV BID SALMA Stop: 05/25/21 20:59 Last Admin: 04/27/21 20:32 Dose: 2.5 mls/min Documented by: Ondansetron HCl (Ondansetron Inj 2 Mg/Ml 2 Ml Vial) 4 mg IV Q6H PRN PRN Reason: Nausea Stop: 05/25/21 18:59 Prednisone (Prednisone 20 Mg Tab) 20 mg PO DAILY [facility] Stop: 05/26/21 08:59 Last Admin: 04/27/21 07:48 Dose: 20 mg Documented by: (1) Anemia Anemia type: unspecified type Qualified Code(s): D64.9 - Anemia, unspecified
[2021-04-28] MEDS ORDERED: lisinopril 5 MG TAB PO SCH (09:00)
--- NOTE | 2021-04-28 09:13 | Discharge Summary ---
Date of Service April 28, 2021 Admission HPI Per Admitting Provider Patient is 55-year-old female with PMH HCV s/p Harvoni w/ SVR, triple negative recurrent left breast cancer s/p bilateral mastectomy 2019, chemo now with recurrence was to restart chemo today presented to ER for abnormal labs and shortness of breath. 03/26/2021 + Covid 19. Had congestion and sore throat. Repeat test on 04/26/2021 negative COVID-19 Admission at [facility] 04/06/21-04/08/21 for melena, acute blood loss anemia was discharged on omeprazole. Patient then developed blisters on abdomen that was thought possible secondary to omeprazole and was discontinued [place] [facility] [place]-04/24/2021 for abdominal pain, BLE rash, AMBER. Had EGD: Mucosal changes in the duodenum, findings c/w vasculitis involving descending duodenum and proximal jejunum. Biopsied. Normal stomach. Normal esophagus. Duodenum biopsy: Active duodenitis with hemorrhage and focal changes in blood vessels suggestive of vasculitis/vasculopathy Pepcid 20 mg daily started. 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 Amlodipine was started secondary to hypertension. 04/22/2021 CT chest: Moderate bilateral pleural effusions with atelectasis. Mild cardiomegaly 04/22/2021 CTA abdomen/pelvis: Mild ascites and anasarca She was treated with IVF for AMBER, thought likely prerenal. Creatinine up to 1.8. She was treated with IVF. Was 1.4 on 04/23 and 1.1 on 04/25. Patient was seen at PCPs office today for follow up. She was to see Dr Johnson today and start chemo. She reports she was told her hemoglobin was 6 so she was referred to ER for further evaluation. Of note patient had outpatient labs today and hemoglobin 7.7 this morning. Patient reports started with shortness of breath last night and had orthopnea. She reports yesterday prior to discharge from [facility] she had noted lower extremity edema. She reports she was given Lasix 20 mg IV prior to discharge. Worsening leg edema extending to thighs and abdomen. She reports during her hospitalization she had significant abdominal pain however that suddenly resolved 2 days ago has not had abdominal pain since. She reported some chest tightness, denies any currently. Patient denies any fever, chills, cough. She reports brown stool. Denies fever/chills, diaphoresis, N/V/D/C, GONZALEZ, dizziness, syncope, vision changes, neck pain, palpitations, sore throat, choking, otalgia, rhinorrhea, paresthesias, weakness, extremity weakness, rashes, urinary symptoms. In ER patient afebrile, P: 85, R: 16, BP 168/98, 95% on room air. No leukocytosis. H/H: 7.7/22, BUN: 37, Cr: 0.8, negative troponin, negative COVID- 19 PCR CXR: Bibasilar opacities which may reflect pneumonia or atelectasis. Pulmonary vascular congestion. Small bilateral pleural effusions. Admission Exam Per Admitting Provider General: no distress, WDWN Head: normocephalic, atraumatic Eyes: PERRL, EOM's intact, conjunctiva non-injected, anicteric ENT: normal inspection external ears, nose, mucous membranes moist Neck: supple, trachea midline Lungs: no respiratory distress, +rales bilateral bases CV: RRR, no murmur, 2+ pretibial edema extending to thighs and abdomen; left chest wall port without surrounding erythema Abd: normal BS, soft, non-tender Ext: no cyanosis, no calf tenderness Neuro: A&O x 3, no focal deficits noted, normal affect Skin: warm, dry Principal Diagnosis Volume overload Symptomatic anemia Duodenitis Recurrent breast cancer Vasculitis Hypertension Discharge Exam General: no distress, pale F , WDWN Head: normocephalic, atraumatic Eyes: PERRL, EOM's intact, conjunctiva pale ENT: normal inspection external ears, nose, mucous membranes moist Neck: supple, trachea midline Lungs: no respiratory distress, CTAB, no wheezing, rhonchi, crackles CV: RRR, no murmur, no LE edema (resolved); left chest wall port without surrounding erythema Abd: normal BS, soft, non-tender Ext: no cyanosis, no calf tenderness Neuro: A&O x 3, no focal deficits noted, normal affect Skin: warm, dry Discharge Data Allergies Allergy/AdvReac Type Severity Reaction Status Date / Time nickel Allergy Mild Rash Verified 03/19/21 08:28 Consultations 04/25/21 12:36 ED Decision to Admit Stat 10/15/21 13:38 Consult Gastroenterology Routine Hospital Course (1) Volume overload: Shortness of breath 55 yo F PMH HCV s/p Harvoni w/ SVR, triple negative recurrent left breast cancer s/p bilateral mastectomy 2018, chemo now with recurrence was to restart chemo on day of presentation but presented to ER for abnormal labs and shortness of breath. [place] [facility] [place]04/24/2021 for abdominal pain, BLE rash, AMBER and was treated with IVF. Had noted bilateral pleural effusions on CT chest on 04/22/2021 and mild ascites and anasarca on CT abdomen pelvis 04/22/2021 Received 20 mg IV Lasix prior to discharge For the past 24 hours patient noted increasing edema bilateral legs extending to abdomen, positive orthopnea In ER patient afebrile, P: 85, R: 16, BP 168/98, 95% on room air. No leukocytosis. H/H: 7.7/22, BUN: 37, Cr: 0.8, negative troponin, negative COVID- 19 PCR CXR: Bibasilar opacities which may reflect pneumonia or atelectasis. Pulmonary vascular congestion. Small bilateral pleural effusions. Likely volume overload secondary to recent IVF (unsure the amount) Hold IVF currently Received IV Lasix in ED, and also 1 dose of IV Lasix with blood transfusion overnight IV Lasix while inpt, can stop now, monitor H&H Diuresing well Hemoglobin improved, weight improved Clinically patient also is much improved, feeling better and breathing better, edema resolved Monitor I&O's, daily weight Echo ordered -LV normal in size. Borderline concentric LVH. LV systolic function is normal. LVEF 55%. LV wall motion is normal. RV is normal in size and function. Aortic valve sclerosis mild, without significant aortic valvular stenosis. There is mild mitral regurg. RV systolic pressure elevated 30 to 40 mmHg. Normal-sized IVC with abnormal collapse. Normal diastolic function. Trend troponin - negative (2) Anemia: (3) Duodenitis determined by biopsy: Recent EGD: Mucosal changes in the duodenum, findings c/w vasculitis involving descending duodenum and proximal jejunum. Biopsied. Normal stomach. Normal esophagus. Duodenum biopsy: Active duodenitis with hemorrhage and focal changes in blood vessels suggestive of vasculitis/vasculopathy Pepcid 20 mg daily started secondary to patient having recent bullous type rash to abdomen thought possible secondary to omeprazole On admission Hgb: 7.7. Was 7.9 day prior to admission. 8.8 on 04/23/2021. Appears to be stable. Brown stool. Denies melena or hematochezia. Denies any abdominal pain. At this time shortness of breath most likely secondary to volume overload and symptomatic anemia Monitor H&H, transfused 1 unit of pRBC Patient does not want to have PPI, will dose Pepcid 20 mg IV twice daily GI consulted - no procedure planned at this time (4) Vasculitis: At [facility] [place] by dermatology and rheumatology. 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 Yanet Maloney, fellow rheumatology at [facility] who recommended continuing prednisone 20 mg daily. She reports that she is research nutritionist over the weekend if patient has any change in condition Continue prednisone 20 mg daily (5) Recurrent cancer of left breast: S/p bilateral mastectomy, chemo 2019 Recent recurrence. Was supposed to start chemo on day of admission Follows with Dr. Johnson (6) HTN (hypertension): Patient with noted elevated BP during admission at [facility] [place]. She was started on amlodipine 2.5 mg daily. Amlodipine may be causing some lower extremity edema however patient is clearly volume overloaded at this time Continued amlodipine while inpt - switch to lisinopril on discharge Follow-up BP as outpatient DVT Prophylaxis -SCDs secondary to anemia Full Code as per discussion with pt Follows with Dr Garcia for routine care Total Time Total Time Spent Total Time Spent (In Minutes): 35 Discharge Plan Discharge Items Patient Disposition: Home - Self-Care Reason For Visit: SYMTOMATIC ANEMIA Discharge Diagnosis: Volume overload Symptomatic anemia Duodenitis Recurrent breast cancer Vasculitis Hypertension Activity: Per Instructions section Non-emergency contact: Primary Care Provider and Oncologist Call non-emergency contact if: you have any medication questions and your symptoms worsen Follow-up/Referrals: Steven Garcia DO [Primary Care Provider] - (Date & Time 05/01/2021 11:20 AM Provider Steven Garcia DO Department Family Practice [facility] ) Diet: Regular Addtl Attending Provider Instructions: Follow up with your primary care doctor and oncologist. The appointment with your primary care doctor was scheduled for you for May 01. Monitor your blood pressure at home, if you are able to, and record these numbers. Discuss with your primary care doctor, if your blood pressure medications should be further adjusted. For now recommend taking lisinopril 5 mg daily, and discontinue amlodipine. Pending Studies at Discharge: No Stand-Alone Forms: My [facility], Smoking Cessation Medications and DC Order Prescriptions: New lisinopril [Zestril] 5 mg Tablet 5 mg PO QAM Qty: 20 RF: 0 Continued prednisone 20 mg tablet 20 mg PO DAILY RF: 0 famotidine 20 mg tablet 20 mg PO DAILY RF: 0 Discontinued amlodipine 2.5 mg tablet 2.5 mg PO DAILY RF: 0 Discharge Orders: Discharge Order (Routine); Ordered 04/28/21 Ordered By: Jhoan Cowart Admission Data Admit Date/Time: 04/25/21 13:19 Attending Provider: Jhoan Cowart Admit Provider: Jhoan oCwart Primary Care Provider: Steven Garcia Other Providers: Tamica Silveira ; Jhoan Cowart
[2021-04-28] MEDS: amLODIPine BESYLATE 5 MG TAB PO SCH (09:25)
[2021-04-28] MEDS: FAMOTIDINE 20 MG in SYRINGE 3 ML IV SCH (09:35)
[2021-04-28] MEDS: predniSONE 20 MG TAB PO SCH (09:35)
== END 2021-04-28 10:48 | disposition home or self-care (01) | DRG 641 ==
LOC: ED 11:25 → 2W 13:19